=== PATIENT | male | born 1955 | race Native Hawaiian/Other Pacific Islander ===

== ENCOUNTER 2019-08-18 17:06 | Emergency (ER) | payer OTHER ==
[~2019-08-18] VITALS: Ht 185.4 cm; Wt 81.6 kg
[2019-08-18 19:00] VITALS: BP 124/76; TEMP 97.6
== END 2019-08-18 19:09 | disposition home or self-care (01) ==
LOC: ED 17:06
DX: K58.8 Other irritable bowel syndrome (principal)
CPT/HCPCS: 36591; 99282